=== PATIENT | male | born 1995 | race Caucasian/White ===

== ENCOUNTER 2019-08-12 02:21 | Emergency (ER) | payer BC ==
[~2019-08-12] VITALS: Ht 177.8 cm; Wt 145.0 kg
[2019-08-12 06:50] VITALS: BP 108/66
== END 2019-08-12 06:57 | disposition home or self-care (01) ==
LOC: ER 02:21
DX: F10.129 Alcohol abuse with intoxication, unspecified (principal); Y90.9 Presence of alcohol in blood, level not specified; S09.8XXA Other specified injuries of head, initial encounter; W01.0XXA Fall on same level from slipping, tripping and stumbling without subsequent striking against object, initial encounter; Y93.9 Activity, unspecified; Y92.9 Unspecified place or not applicable
CPT/HCPCS: 99284